=== PATIENT | female | born 1960 ===

== ENCOUNTER 2020-10-03 10:54 | Day surgery (SDC) | payer BC ==
[~2020-10-03 10:54] MED LIST: Glycopyrrolate 0.2 MG/ML SDV ONE; Lactated Ringers 1,000 ML IV SCH; Lidocaine 2% 5 ML SDV ONE; Midazolam 1 MG/ML 2 ML SDV ONE; Propofol 200 MG/20 ML SDV ONE; Sodium Chloride 0.9% 10 ML SDV IV PRN; Sodium Chloride 0.9% 10 ML Syringe FLUSH PRN; Sodium Chloride 0.9% 2.5 ML Syringe FLUSH PRN
--- NOTE | 2020-10-03 11:35 | PCM.PREANE ---
Preanesthetic Assessment - Anesthesia/Transfusion/Family Hx Anesthesia History: Prior Anesthesia Without Reaction Other Type of Anesthesia Reaction Comment: "I have difficulty waking up after having anesthesia" Family History of Anesthesia Reaction: No Transfusion History: No Prior Transfusion(s) - Review of Systems General: No Symptoms Pulmonary: No Symptoms Cardiovascular: No Symptoms Gastrointestinal: Abdominal Pain, Diarrhea Neurological: No Symptoms Other: Reports: None - Physical Assessment Vital Signs: Last Vital Signs Temp 36.6 C 10/03/20 11:04 Pulse 60 10/03/20 11:04 Resp 15 10/03/20 11:04 BP 109/60 10/03/20 11:04 Pulse Ox 100 10/03/20 11:04 Height: 5 ft 2 in Weight: 71.668 kg ASA Class: 2 Mental Status: Alert & Oriented x3 Airway Class: Mallampati = 2 Dentition: Reports: Normal Dentition Thyro-Mental Finger Breadths: 3 Mouth Opening Finger Breadths: 3 ROM/Head Extension: Limited/Partial Lungs: Clear to Auscultation, Normal Respiratory Effort Cardiovascular: Regular Rate, Regular Rhythm - Allergies Allergies/Adverse Reactions: Allergies Allergy/AdvReac Type Severity Reaction Status Date / Time No Known Allergies Allergy Verified 09/28/20 07:42 - Blood Blood Available: No - Anesthesia Plan Pre-Op Medication Ordered: None - Acknowledgements Anesthesia Type Planned: MAC Pt an Appropriate Candidate for the Planned Anesthesia: Yes Alternatives and Risks of Anesthesia Discussed w Pt/Guardian: Yes Pt/Guardian Understands and Agrees with Anesthesia Plan: Yes PreAnesthesia Questionnaire HEENT History: Reports: Allergic Rhinitis, Other (See Below) Other HEENT History: wears glasses, upper and lower permanent partials Cardiovascular History: Reports: None Respiratory History: Reports: None Gastrointestinal History: Reports: GERD, Other (See Below) (small liver hemangiona, h/o nonspecific colitis) Other Gastrointestinal History: diarrhea x2 months Genitourinary History: Reports: None PATIENT DAY COORDINATOR History: Reports: Musculoskeletal History: Reports: None Neurological History: Reports: Seizure Other Neuro History: 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, "menstral related", none since hysterectomy in 2009 Psychiatric History: Reports: Depression Other Psychiatric History: hx of post depression Endocrine/Metabolic History: Reports: None Hematologic History: Reports: None Immunologic History: Reports: None Oncologic (Cancer) History: Reports: None Dermatologic History: Reports: None - Infectious Disease History Infectious Disease History: Reports: None - Past Surgical History Head Surgeries/Procedures: Reports: None HEENT Surgical History: Reports: Tonsillectomy Cardiovascular Surgical History: Reports: None Respiratory Surgical History: Reports: None GI Surgical History: Reports: Appendectomy, Colonoscopy, EGD, Hernia Repair/Other Female Surgical History: Reports: Breast Implant, Hysterectomy, Other (See Below) Other Female Surgeries/Procedures: Breast Augmentation Endocrine Surgical History: Reports: None Neurological Surgical History: Reports: C-Spine Other Neurological Surgeries/Procedures: neck fusion C 6-7 Musculoskeletal Surgical History: Reports: Arthroscopic Knee Other Musculoskeletal Surgeries/Procedures:: left ACL repair Oncologic Surgical History: Reports: None Dermatological Surgical History: Reports: None - SUBSTANCE USE Tobacco Use Status *Q: Current Every Day Tobacco User (1/2-1 ppd) Tobacco Use Within Last Twelve Months: Cigarettes - HOME MEDS Home Medications: Home Meds Cetirizine [ZyrTEC] 10 mg PO DAILY 07/12/20 [History] Ascorbate Calcium [Vitamin C] 1 tab PO DAILY 09/28/20 [History] Cholecalciferol (Vitamin D3) [Vitamin D3] 1 tab PO DAILY 09/28/20 [History] Iron 1 tab PO DAILY 09/28/20 [History] - CURRENT (IN HOUSE) MEDS Current Meds: Current Medications Lactated Ringer's (Ringers, Lactated) 1,000 mls @ 125 mls/hr IV ASDIRECTED ISHA Last Admin: 10/03/20 11:15 Dose: 125 mls/hr Documented by: Sodium Chloride (Saline Flush) 2.5 ml FLUSH ASDIRECTED PRN PRN Reason: Keep Vein Open Sodium Chloride (Normal Saline) 10 ml IV ASDIRECTED PRN PRN Reason: IV Use Discontinued Medications Glycopyrrolate (Robinul) Confirm Administered Dose 0.2 mg .ROUTE .STK-MED ONE Stop: 10/03/20 08:20 Lidocaine (Xylocaine-Mpf 2%) Confirm Administered Dose 5 ml .ROUTE .STK-MED ONE Stop: 10/03/20 08:20 Midazolam HCl (Versed 1 Mg/Ml) Confirm Administered Dose 2 mg .ROUTE .STK-MED ONE Stop: 10/03/20 08:20 Propofol (Diprivan 20 Ml) Confirm Administered Dose 600 mg .ROUTE .STK-MED ONE Stop: 10/03/20 08:20
[2020-10-03 12:59] VITALS: PULSE 63
--- NOTE | 2020-10-03 13:08 | PCM.POSTAN ---
POST ANESTHESIA ASSESSMENT - MENTAL STATUS Mental Status: Alert, Oriented - VITAL SIGNS Vital Signs: Last Vital Signs Temp 36.6 C 10/03/20 11:04 Pulse 63 10/03/20 12:57 Resp 20 10/03/20 12:57 BP 115/61 10/03/20 12:57 Pulse Ox 98 10/03/20 12:57 - RESPIRATORY Respiratory Status: Respiratory Rate WNL, Airway Patent, O2 Saturation Stable - CARDIOVASCULAR CV Status: Pulse Rate WNL, Blood Pressure Stable - GASTROINTESTINAL GI Status: No Symptoms - PAIN Pain Score: 0 - POST OP HYDRATION Hydration Status: Adequate & Stable - OBSERVATIONS Free Text/Narrative:: No anesthesia problems
[2020-10-03 13:11] VITALS: BP 111/63
--- NOTE | 2020-10-03 13:27 | PCM48HPAN ---
Post Anesthesia Note - EVALUATION WITHIN 48HRS OF ANESTHETIC Vital Signs in Normal Range: Yes Patient Participated in Evaluation: Yes Respiratory Function Stable: Yes Airway Patent: Yes Cardiovascular Function Stable: Yes Hydration Status Stable: Yes Pain Control Satisfactory: Yes Nausea and Vomiting Control Satisfactory: Yes Mental Status Recovered: Yes Vital Signs: Last Vital Signs Temp 36.6 C 10/03/20 13:02 Pulse 63 10/03/20 13:02 Resp 15 10/03/20 13:02 BP 111/63 10/03/20 13:02 Pulse Ox 98 10/03/20 13:02 - COMMENTS/OBSERVATIONS Free Text/Narrative:: No anesthesia problems
--- NOTE | 2020-10-03 13:28 | PCM.OPNOTE ---
- General Post-Op/Procedure Note Date of Surgery/Procedure: 10/03/20 Operative Procedure(s): Diagnostic EGD and colonoscopy Findings: Gastritis, normal appearing colon Pre Op Diagnosis: Change in bowel habits Post-Op Diagnosis: Gastritis Anesthesia Technique: MAC Primary Surgeon: Christal Yanez Condition: Stable Free Text/Narrative:: Intake & Output 10/02/20 10/03/20 10/03/20 22:59 06:59 14:59 Intake Total 500 Balance 500
--- NOTE | 2020-10-04 15:22 | OR ---
SURGEON: CHRISTAL YANEZ MD DATE OF PROCEDURE: 10/03/2020 PREOPERATIVE DIAGNOSIS: Chronic diarrhea. POSTOPERATIVE DIAGNOSIS: Gastritis. PROCEDURES PERFORMED: Diagnostic esophagogastroduodenoscopy and colonoscopy. PRIMARY SURGEON: Endoscopist: Christal Yanez MD. ANESTHESIA: MAC. INSTRUMENT USED: Olympus endoscope and colonoscope. EXTENT OF EXAMINATION: To the second portion of duodenum, to the cecum. PREPARATION: Good. LIMITATIONS: None. INDICATIONS: The patient is a 60-year-old female who presented to my clinic earlier this fall complaining of abdominal pain as well as diarrhea. Lab work was unremarkable. CT scan of the abdomen and pelvis at that time showed a mild nonspecific colitis throughout the colon. The patient was lost to follow up, but presented back to my clinic a couple of weeks ago. She states that she had drastically changed her diet. Since doing this, her symptoms have improved, however, she continues to have some mild discomfort in her left lower quadrant. The patient is concerned that she has ulcerative colitis. The patient and I discussed the need for a diagnostic esophagogastroduodenoscopy as well as a colonoscopy. I explained the procedures, expected perioperative course, and the risks. The patient verbalized understanding and wishes to proceed. PROCEDURE IN DETAIL: The patient was brought into the endoscopy suite and placed in the left lateral decubitus position. A time-out was completed verifying the patient's name, age, date of , allergies, and procedure to be performed. Monitored anesthesia care was induced. A bite block was placed in the patient's mouth and continuous oxygen was provided via face mask throughout the procedure. After adequate sedation was achieved, a well-lubricated endoscope was placed in the patient's mouth and advanced under direct visualization to the second portion of duodenum. This appeared normal and a photograph was taken. The scope was then straightened out and fully withdrawn while examining the color, texture, anatomy, and integrity of the mucosa of the upper GI tract. The duodenum appeared normal. The scope was brought into the stomach and a photograph was taken of the pylorus and GE junction. Both appeared anatomically normal. Upon close inspection of the body of the stomach, the patient appeared to have evidence of chronic gastritis. Biopsies were taken of the gastric antrum, body, and fundus and sent for histologic review and H pylori testing. I saw no evidence of ulceration. Scope was brought into the distal esophagus and a photograph was taken of the Z-line. This appeared normal. A biopsy was taken 1 cm above the Z-line and sent to pathology, labeled as esophagus. The remainder of the esophagus appeared free of pathology. The scope was removed and this portion of the procedure terminated. A digital rectal exam was performed. This exam was within normal limits. A well-lubricated colonoscope was inserted into the rectum and advanced under direct visualization to the level of the cecum. The cecum was identified by both visual and anatomic landmarks. A photograph was taken of the cecal cap, however, I was unable to retroflex the scope within the cecum due to looping of the scope more proximally. The scope was then fully withdrawn while examining the color, texture, anatomy, and integrity of the mucosa of the GI tract. I saw no evidence of any pathology. However, biopsies were taken of the cecum, transverse colon, sigmoid colon, and rectum and sent to pathology for histologic review. The scope was retroflexed within the rectum to allow visualization of the anal canal opening. It showed normal hemorrhoidal tissue. A photograph was taken. The scope was straightened out and fully withdrawn. The cecum to anus time was 6 minutes. The patient tolerated the procedure well and was transferred to the PACU in stable condition. ENDOSCOPIC DIAGNOSIS: Gastritis. RECOMMENDATIONS: I visited with the patient regarding my findings. I will visit with her in clinic in 2 weeks to discuss with her pathology results and any next steps in treatment. ROJELIO SNYDER /[id number]
== END 2020-10-03 13:35 | disposition home or self-care (01) ==
LOC: MW.SDS 10:54
PROVIDERS: ATTEND Surgery
DX: K52.9 Noninfective gastroenteritis and colitis, unspecified (principal); K29.50 Unspecified chronic gastritis without bleeding; K20.90 Esophagitis, unspecified without bleeding; K62.89 Other specified diseases of anus and rectum; F17.210 Nicotine dependence, cigarettes, uncomplicated; Z90.49 Acquired absence of other specified parts of digestive tract; Z98.890 Other specified postprocedural states
CPT/HCPCS: 43239; 45380; 88305; 88312; J2001; J2250; J2704; J3490; J7120; 00813